=== PATIENT | female | born 1975 | race Caucasian/White ===

== ENCOUNTER 2023-04-18 14:00 | Outpatient (RCR) | payer BC, SELFPAY | END 2023-08-16 23:59 | disposition home or self-care (01) | PROVIDERS: Visit Provider Family Medicine | DX: M54.2 Cervicalgia (principal); M26.633 Articular disc disorder of bilateral temporomandibular joint; Z51.89 Encounter for other specified aftercare | CPT/HCPCS: 97012; 97140; 97162 ==